=== PATIENT | female | born 1955 | race Caucasian/White ===

== ENCOUNTER 2016-09-14 17:46 | Inpatient (IN) | payer MEDICARE, BC ==
[2016-09-14] VITALS (11 sets, daily range): BP systolic 67–109; BP diastolic 47–64; BMI 23.0
[~2016-09-14] VITALS: Ht 162.6 cm; Wt 60.7 kg
[~2016-09-14 17:46] MED LIST: AMBIEN10 MG PO; BAYER CHEWABLE81 MG PO; DOXYCYCLINE HY100 M2 PO; DURAGESIC1 PATCH .7 TD; GLUCOPHAGE500 MG PO; K-DUR20 MEQ PO; LASIX20 MG PO; LISINOPRIL10 MG PO; MIRALAX17 GM PO; NEURONTIN 300300 MG PO; NICODERM C1 PATCH .3 TD; NORCO 10/325 TA1 TA1 PO; OMNICEF300 MG PO; TRIPLE ANTIB28.35 GM TP
[2016-09-14 19:00] LABS: BASOPHILS 0 % (0.0-2.0); EOSINOPHILS 0 % (0-7); IMMATURE GRANULOCYTES 0.3 % (0-5); LYMPHOCYTES 12.6 % (15-50); MCHC 32.2 g/dL (31.0-37.0); MCV 99.3 fL (80.0-100.0); MEAN PLATELET VOLUME 11.5 fL (7.4-10.4); MONOCYTES 2.7 % (2-11); NEUTROPHILS 84.4 % (40-80); PLATELET COUNT 62 10x3/uL (130-400); RDW 18.2 % (11.5-14.5); WBC 3.7 10x3/uL (4.8-10.8)
[2016-09-14 19:09] LABS: HEMATOCRIT 14.6 % (36.0-48.0); HEMOGLOBIN 4.7 g/dL (12-16); RBC 1.47 10x6/uL (4.00-5.40)
[2016-09-14 19:10] LABS: APTT 40.8 SECONDS (22.8-39.4); INR 2.21 (0.85-1.17); PROTIME 24.6 SECONDS (11.6-15.0)
[2016-09-14 19:14] LABS: ALBUMIN 2.1 g/dL (3.4-5.0); ANION GAP 20.5 mmol/L (8-16); BILIRUBIN - TOTAL 0.98 mg/dL (0.2-1.3); CALCIUM 8.5 mg/dL (8.5-10.1); CARBON DIOXIDE 19.7 mmol/L (21.0-32.0); CREATININE - SERUM 1.4 mg/dL (0.6-1.3); POTASSIUM - SERUM 5.2 mmol/L (3.5-5.1)
[2016-09-14 20:23] LABS: PLATELET ESTIMATE DECREASED
--- NOTE | 2016-09-14 21:00 | NUR ---
2100: Pt rec'd from ED via STR and placed HOB 30 degrees in room 2302 without difficulty. All monitors established and alarm set. Pt has Sandostation gtt and Protonix gtt infusing from ED. Pt is on 022LNC.
--- NOTE | 2016-09-14 21:15 | NUR ---
2114: Pt wearing adult briefs. Removed briefs. Small semi solid stool that is dark in color cleaned. Pt states she has had "red" stools for "a couple days." Pt continues that bloody stools increased in volume today though. Pt denies nausea or vomitting at this time.
--- NOTE | 2016-09-14 21:30 | NUR ---
2129: Dr. Venegas called and new orders rec'd. Started 22G PIV in Right FA at this time x1 attempt. NS bolus started to left arm 18G AC PIV, 3 way adapter connected to left FA PIV with Sandostaton and Protonix gtts. BT with NS connected to Right FA IV and PRBC, FFP, and PLT ordered.
--- NOTE | 2016-09-14 23:00 | NUR ---
2300: Pt tolerating blood product administration. Pt on 022LNC with [id number] with SPO2 97%. Lungs clear bilateral with auscultation. Pt does c/o pain 10/10 and states she has chronic "bilateral leg pain and cramping." Pt is wearing Fentanyl patch to left upper chest. Pt repositioned for comfort and provide ice chips as per request.
[2016-09-15] VITALS (39 sets, daily range): BP systolic 80–137; BP diastolic 50–101; Ht 162.6 cm; Wt 60.7 kg
[2016-09-15] MEDS ORDERED: GLUCOPHAGE500 MG (00:15)
[2016-09-15] MEDS ORDERED: ATIVAN2 MG PO (00:39)
[2016-09-15] MEDS ORDERED: RIBAVIRIN200 MG PO (00:40)
[2016-09-15] MEDS ORDERED: ZEPATIER PO (00:41)
[2016-09-15] MEDS ORDERED: ZOFRAN4 MG PO (00:43)
--- NOTE | 2016-09-15 03:30 | NUR ---
0330: Pt with small dark liquid BM. Linen saturated with urine. Linen changed and pt repositioned for comfort.
--- NOTE | 2016-09-15 04:30 | NUR ---
0430: Pt with hacking non productive cough. Lab called for AM Lab, Fio2 increased to 4L per NC, pt repositioned HOB 40 degrees. Pt lungs with audible exp wheezes bilaterally.
[2016-09-15 04:51] LABS: BASOPHILS 0.3 % (0.0-2.0); EOSINOPHILS 0.6 % (0-7); HEMATOCRIT 26.3 % (36.0-48.0); HEMOGLOBIN 8.8 g/dL (12-16); LYMPHOCYTES 17.4 % (15-50); MCHC 33.5 g/dL (31.0-37.0); MCV 86.8 fL (80.0-100.0); MEAN PLATELET VOLUME 10.9 fL (7.4-10.4); MONOCYTES 5.9 % (2-11); NEUTROPHILS 75.8 % (40-80); PLATELET COUNT 63 10x3/uL (130-400); RBC 3.03 10x6/uL (4.00-5.40); RDW 17.6 % (11.5-14.5); WBC 3.6 10x3/uL (4.8-10.8)
--- NOTE | 2016-09-15 05:00 | NUR ---
0500: Pt continues with exp wheezing. Notified . New orders rec'd, Pt given Lasix 20 mg IVP x1 at this time.
[2016-09-15 05:16] LABS: APTT 25.1 SECONDS (22.8-39.4); INR 1.29 (0.85-1.17)
[2016-09-15 05:23] LABS: BILIRUBIN - TOTAL 1.59 mg/dL (0.2-1.3); CALCIUM 8.8 mg/dL (8.5-10.1); CARBON DIOXIDE 23.2 mmol/L (21.0-32.0); CREATININE - SERUM 1.1 mg/dL (0.6-1.3)
[2016-09-15 05:24] LABS: ALBUMIN 3.2 g/dL (3.4-5.0); ANION GAP 15.1 mmol/L (8-16); POTASSIUM - SERUM 4.3 mmol/L (3.5-5.1)
[2016-09-15 10:08] LABS: BASOPHILS 0 % (0.0-2.0); EOSINOPHILS 0.2 % (0-7); HEMATOCRIT 29.1 % (36.0-48.0); HEMOGLOBIN 9.9 g/dL (12-16); IMMATURE GRANULOCYTES 0.2 % (0-5); LYMPHOCYTES 11.3 % (15-50); MCH 29.9 pg (26.0-34.0); MCV 87.9 fL (80.0-100.0); MEAN PLATELET VOLUME 11.1 fL (7.4-10.4); MONOCYTES 3.5 % (2-11); NEUTROPHILS 84.8 % (40-80); PLATELET COUNT 67 10x3/uL (130-400); RBC 3.31 10x6/uL (4.00-5.40); RDW 18.7 % (11.5-14.5); WBC 4.3 10x3/uL (4.8-10.8)
[2016-09-15] MEDS ORDERED: ULTRAM50 MG PO (10:16)
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
--- NOTE | 2016-09-15 11:00 | NUR ---
NO CHANGE NOTED
--- NOTE | 2016-09-15 13:00 | NUR ---
UP TO CHAIR WITH SOME ASSISTANCE, STANDS WELL, GOOD BALANCE, NEEDED HELP WITH TUBES AND LINES ONLY
--- NOTE | 2016-09-15 15:00 | NUR ---
NO CHANGE NOTED.
[2016-09-15 18:03] LABS: HEMATOCRIT 29.8 % (36.0-48.0)
--- NOTE | 2016-09-15 19:00 | NUR ---
REPORT RECIEVED, INITIAL ASSESSMENT COMPLETE, PLEASE SEE FLOW SHEETS FOR DETAILS. PT UP ON BEDSIDE CAMODE. DENIES ANY NEEDS/PAIN ATT. VSS, BED LOW AND LOCKED, CALL LIGHT IN REACH, NON SKID SOCKS ON. WILL CONTINUE POC.
--- NOTE | 2016-09-15 21:00 | NUR ---
DENIES PAIN/NEEDS ATT, UP IN CHAIR, CALL LIGHT IN REACH, CHAIR LOCKED, NON SKID SOCKS ON. VSS, WILL CONTINUE POC.
--- NOTE | 2016-09-15 23:00 | NUR ---
REASSESSMENT COMPLETE, PLEASE SEE FLOW SHEETS FOR DETAILS. PT RESTING IN CHAIR. DENIES PAIN/NEEDS ATT. CHAIR LOCKED, NON SKID SOCKS ON AND CALL LIGHT IN REACH. VSS, WILL CONTINUE POC.
[2016-09-16] VITALS (25 sets, daily range): BP systolic 109–135; BP diastolic 50–93
--- NOTE | 2016-09-16 01:00 | NUR ---
RESTING, NO S&S OF ACUTE DISTRESS NOTED. IN CHAIR, CHAIR LOCKED, NON SKID SOCKS ON, CALL LIGHT IN REACH. VSS, WILL CONTINUE POC.
--- NOTE | 2016-09-16 02:57 | NUR ---
REASSESSMENT COMPLETE, PLEASE SEE FLOW SHEETS FOR DETAILS. UP IN CHAIR, CHAIR LOCKED, NON SKID SOCKS ON, CALL LIGHT IN REACH. VSS, WILL CONTINUE POC.
[2016-09-16 04:51] LABS: HEMATOCRIT 29.2 % (36.0-48.0); HEMOGLOBIN 9.6 g/dL (12-16)
--- NOTE | 2016-09-16 05:00 | NUR ---
BACK TO BED, BED LOW AND LOCKED, CALL LIGHT IN REACH, VSS, WILL CONTINUE POC.
[2016-09-16 05:01] LABS: INR 1.43 (0.85-1.17); PROTIME 17.3 SECONDS (11.6-15.0)
[2016-09-16 05:17] LABS: ALBUMIN 3.3 g/dL (3.4-5.0); ANION GAP 12.1 mmol/L (8-16); CALCIUM 8.5 mg/dL (8.5-10.1); CARBON DIOXIDE 24.6 mmol/L (21.0-32.0); CREATININE - SERUM 0.9 mg/dL (0.6-1.3); POTASSIUM - SERUM 3.7 mmol/L (3.5-5.1); PROTEIN - SERUM 6.8 g/dL (6.4-8.2)
--- NOTE | 2016-09-16 07:00 | NUR ---
RECIEVED REPORT ON PT AT THIS TIME. NO ACUTE DISTRESS NOTED. PT TRANSFERRED FROM ICU TO CVICU AT THIS TIME VIA WHEELCHAIR ACCOMPANIED BY NURSING STAFF. PT ALERT AND ORIENTED. WILL CONTINUE PLAN OF CARE.
--- NOTE | 2016-09-16 09:40 | NUR ---
CONTINENT VOID NOTED VIA BEDPAN. PT DENIES ANY NEEDS. VSS. WILL CONTINUE PLAN OF CARE.
[2016-09-16 11:06] LABS: HEMATOCRIT 27.8 % (36.0-48.0); HEMOGLOBIN 9.3 g/dL (12-16)
--- NOTE | 2016-09-16 11:44 | NUR ---
LYING IN BED WATCHING TV AT THIS TIME. NO ACUTE DISTRESS NOTED. WILL CONTINUE PLAN FO CARE.
--- NOTE | 2016-09-16 15:59 | NUR ---
UP IN BED AT THIS TIME VISITING WITH FAMILY. NO ACUTE DISTRESS NOTED. BEDPAN USED, CONTINENT VOID APPROX 450 ML. WILL CONTINUE PLAN OF CARE.
--- NOTE | 2016-09-16 18:07 | NUR ---
UP IN CHAIR BESIDE BED AT THIS TIME. DENIES ANY NEEDS. NO ACUTE DISTRESS NOTED. WILL CONTINUE PLAN OF CARE.
[2016-09-16 18:23] LABS: HEMATOCRIT 27.6 % (36.0-48.0)
--- NOTE | 2016-09-16 19:00 | NUR ---
REPORT RECEIVED AND ASSESSMENT COMPLETED. SEE FLOWSHEET FOR FULL DETAILS.
--- NOTE | 2016-09-16 21:00 | NUR ---
GAVE PT BLANKET PER HER REQUEST. REPOSITIONED FOR COMFORT. VSS WILL MONITOR.
--- NOTE | 2016-09-16 23:00 | NUR ---
REASSESSMENT COMPLETED. SEE FLOWSHEET. PT HAD ONE INCONTINENT URINATION. COMPLETE LINEN CHANGE PROVIDED. PT STATES THAT SHE HAS PAIN BETWEEN SHOULDERS. PRN PAIN MED NOT AVAILABLE FOR ADMINISTRATION YET. TREATED PAIN WITH HEAT AND REPOSITIONING. WILL CONTINUE TO MONITOR.
[2016-09-17] VITALS (24 sets, daily range): BP systolic 35–137; BP diastolic 57–89
--- NOTE | 2016-09-17 01:00 | NUR ---
PT STATES HER BACK HURTS. REPOSITIONED FOR COMFORT. HAVE PROVIDED HEAT AND MEDICATION WHEN ABLE. VSS. WILL MONITOR FOR CHANGES.
--- NOTE | 2016-09-17 03:00 | NUR ---
REASSESSMENT COMPLETED. SEE FLOWSHEET FOR FULL DETAILS. PT B/P 95 SYSTOLIC. WILL HOLD PRN PAIN MED UNTIL THIS RISES. PT DID STATE THAT SHE IS NOT LONGER IN PAIN AT THIS TIME. WILL MONITOR FOR CHANGES AND ADMINISTER WHEN APPLICABLE.
[2016-09-17 04:51] LABS: BASOPHILS 0 % (0.0-2.0); EOSINOPHILS 1.3 % (0-7); HEMATOCRIT 28.4 % (36.0-48.0); HEMOGLOBIN 9.1 g/dL (12-16); LYMPHOCYTES 11.8 % (15-50); MCH 29.3 pg (26.0-34.0); MEAN PLATELET VOLUME 11.2 fL (7.4-10.4); MONOCYTES 5.1 % (2-11); NEUTROPHILS 81.8 % (40-80); PLATELET COUNT 63 10x3/uL (130-400); RBC 3.11 10x6/uL (4.00-5.40)
[2016-09-17 05:01] LABS: INR 1.53 (0.85-1.17); PROTIME 18.3 SECONDS (11.6-15.0)
[2016-09-17 05:11] LABS: MCV 91.3 fL (80.0-100.0)
[2016-09-17 05:16] LABS: ALBUMIN 3.1 g/dL (3.4-5.0); ALKALINE PHOSPHATASE 69 U/L (46-116); ALT (SGPT) 131 U/L (10-68); CALCIUM 8.5 mg/dL (8.5-10.1); CARBON DIOXIDE 26.3 mmol/L (21.0-32.0); CHLORIDE - SERUM 107 mmol/L (98-107); CREATININE - SERUM 0.8 mg/dL (0.6-1.3); GLUCOSE 180 mg/dL (74-106); POTASSIUM - SERUM 3.7 mmol/L (3.5-5.1); PROTEIN - SERUM 6.8 g/dL (6.4-8.2); SODIUM 141 mmol/L (136-145); eGFR NON AFRICAN AMERICAN 77 mL/min (90-120)
[2016-09-17 05:26] LABS: CALC OSMOLALITY 292 mosm/kg (275-300); UREA NITROGEN 31 mg/dL (7-18)
--- NOTE | 2016-09-17 05:41 | NUR ---
ASSISTED PT TO BATHROOM. NO OTHER CHANGES AT THIS TIME. VSS. WILL MONITOR.
--- NOTE | 2016-09-17 10:46 | NUR ---
NUTRITION MONITORING & EVAL PT CONTINUES CLEAR LIQUID DIET. NURSING REPORTS MODEST INTAKE. WILL MONITOR DIET ADVANCEMENT, PO INTAKE. RD FOLLOWING
[2016-09-17 13:11] LABS: HEMATOCRIT 26.5 % (36.0-48.0); HEMOGLOBIN 8.6 g/dL (12-16)
--- NOTE | 2016-09-17 19:00 | NUR ---
REPORT RECEIVED AND ASSESSMENT COMPLETED. SEE FLOWSHEET FOR FULL DETAILS.
--- NOTE | 2016-09-17 19:05 | NUR ---
PT ADMITTED TO CVICU, ALL MONITORING EQUIPMENT ATTACHED. ALARMS ON. PT YELLING, ATTEMPTING TO REORIENT. PAIN MEDS GIVEN. PT UNABLE TO REDIRECT TO STAY IN BED. BUE WRIST RESTRAINTS APPLIED ORDERED.
[2016-09-17 20:19] LABS: HEMATOCRIT 28.5 % (36.0-48.0)
--- NOTE | 2016-09-17 21:00 | NUR ---
PT SEEN BY DR HAYES. NEW ORDERS RECEIVED.
--- NOTE | 2016-09-17 23:00 | NUR ---
reassessment completed see flowsheet for full details
[2016-09-18] VITALS (15 sets, daily range): BP systolic 98–133; BP diastolic 56–82
--- NOTE | 2016-09-18 01:34 | NUR ---
no changes in status at this time
--- NOTE | 2016-09-18 03:00 | NUR ---
REASSESSMENT COMPLETED. SEE FLOWSHEET.
--- NOTE | 2016-09-18 05:00 | NUR ---
NO CHANGES IN STATUS AT THIS TIME. VSS. WILL MONITOR
[2016-09-18 05:38] LABS: HEMATOCRIT 28.7 % (36.0-48.0); HEMOGLOBIN 9.3 g/dL (12-16)
[2016-09-18 05:42] LABS: ANION GAP 12.3 mmol/L (8-16); CALCIUM 7.9 mg/dL (8.5-10.1); CARBON DIOXIDE 26.6 mmol/L (21.0-32.0); CREATININE - SERUM 0.9 mg/dL (0.6-1.3); POTASSIUM - SERUM 3.9 mmol/L (3.5-5.1)
--- NOTE | 2016-09-18 10:06 | NUR ---
ASSISTED PT TO BATHROOM, STEADY GAIT NOTED. REC'D TRANSFER ORDERS AND UD ORDERS FROM DR ALVARADO.
[2016-09-18 10:30] LABS: HEMATOCRIT 28.7 % (36.0-48.0); HEMOGLOBIN 9.3 g/dL (12-16); LYMPHOCYTES 10.1 % (15-50); MCH 30.2 pg (26.0-34.0); MCHC 32.4 g/dL (31.0-37.0); MCV 93.2 fL (80.0-100.0); MEAN PLATELET VOLUME 11.7 fL (7.4-10.4); NEUTROPHILS 83.3 % (40-80); PLATELET COUNT 57 10x3/uL (130-400); RBC 3.08 10x6/uL (4.00-5.40); RDW 19.8 % (11.5-14.5); WBC 3.6 10x3/uL (4.8-10.8)
[2016-09-18 18:59] LABS: HEMATOCRIT 29.9 % (36.0-48.0); HEMOGLOBIN 9.5 g/dL (12-16)
--- NOTE | 2016-09-18 19:00 | NUR ---
REPORT RECEIVED AND ASSESSMENT COMPLETED. SEE FLOWSHEET FOR FULL DETAILS. DR HAYES AT BEDSIDE. PT IS NOW A XFER. VSS WILL MONITOR FOR CHANGES
--- NOTE | 2016-09-18 21:00 | NUR ---
PT ASSISTED OOB AND INTO BATHROOM, PT INSTRUCTED TO CALL FOR ASSITANCE BEFORE RETURNING TO BED, PT VERBALIZES UNDERSTANDING
--- NOTE | 2016-09-18 21:20 | NUR ---
PT ASSISTED TO MANUELA GARDINER
--- NOTE | 2016-09-18 21:55 | NUR ---
PT ASSISTED BACK TO BED AND EVENING MED OF AMBIEN PROVIDED, PT COMPLAINS OF BEING COLD, EXTRA BLANKETS PROVIDED, PT DENIES FURTHER NEEDS, CALL LIGHT IN REACH, WILL MONITOR FOR CHANGES.
--- NOTE | 2016-09-18 22:00 | NUR ---
REPORT REC'D AND CARE ASSUMED, REC' D PT SITTING UP IN CHAIR AT BS WATCHING TV, AWAKE, ALERT, ORIENTED X 3, RIGHT FOREARM PIV WITH ZOFRAN @ 4.7CC/HR, AND LEFT FOREARM PIV WITH PROTONIX @ 10CC/HR, CM-SR, PT MAEE, DENIES PAIN OR OTHER NEEDS, CALL LIGHT IN REACH.
[2016-09-19] VITALS (11 sets, daily range): BP systolic 100–131; BP diastolic 43–89
--- NOTE | 2016-09-19 00:30 | NUR ---
PT RESTING IN BED EYES CLOSED, VSS, WILL CONT TO MONITOR FOR CHANGES.
--- NOTE | 2016-09-19 03:00 | NUR ---
PT AWAKE REQUESTING TO GO TO THE BATHROOM, PT ASSISTED UP TO BATHROOM, INSTRUCTED TO CALL FOR NURSE BEFORE RETURNING TO BED.
--- NOTE | 2016-09-19 03:20 | NUR ---
BATH AND COMPLETE LINEN CHANGE PROVIDED WHILE PT UP IN BATHROOM, HAIR COMBED, PT WISHES TO SIT UP FOR AWHILE, ASSISTED PT TO CHAIR, WARM BLANKET PROVIDED FOR COMFORT, CALL LIGHT IN REACH
[2016-09-19 04:16] LABS: HEMATOCRIT 29.8 % (36.0-48.0); HEMOGLOBIN 9.5 g/dL (12-16)
[2016-09-19 04:23] LABS: CALC OSMOLALITY 284 mosm/kg (275-300); CALCIUM 8.2 mg/dL (8.5-10.1); CARBON DIOXIDE 27.2 mmol/L (21.0-32.0); CHLORIDE - SERUM 103 mmol/L (98-107); CREATININE - SERUM 0.8 mg/dL (0.6-1.3); GLUCOSE 189 mg/dL (74-106); POTASSIUM - SERUM 3.4 mmol/L (3.5-5.1); SODIUM 139 mmol/L (136-145); UREA NITROGEN 18 mg/dL (7-18); eGFR NON AFRICAN AMERICAN 77 mL/min (90-120)
--- NOTE | 2016-09-19 05:05 | NUR ---
PT REMAINS UP IN CHAIR WATCHING TV, DENIES PAIN OR OTHER NEEDS, WILL REMAIN IN CHAIR AT THIS TIME.
--- NOTE | 2016-09-19 07:52 | NUR ---
PT UP SITTING IN CHAIR. ALERT AND ORIENTED. 02 2LNC, SPO2 97%, RT LUNG DEMINISHED,AFEBRILE,VSS. BREAKFAST TRAY SERVED. /
--- NOTE | 2016-09-19 08:50 | NUR ---
ASSISTED PT TO BATHROOM. REPORT CALLED TO [facility] 2 NURSING STAFF. WILL TRANSPORT BU W/C.
--- NOTE | 2016-09-19 09:30 | NUR ---
LIAN MARQUEZ RECEIVED REPORT FROM LIAN JARRETT IN CVICU. 09- RECEIVED PT FROM LIAN JARRETT VIA WHEELCHAIR. PT IS ALERT AND ORIENTED. UP WITH PARTIAL ASSIST. ON O2 AT 2L VIA NC. IV SEEN TO LEFT AC (AREA IS RED, TENDER TO TOUCH) WITH PROTONIX DRIP RUNNING AT 10CC/HR. SECOND IV SEEN TO RIGHT FOREARM WITH ZOFRAN DRIP RUNNING AT 4.7CC/HR. SAT IS 97% (ON 02 AT 2L VIA NC), HR IS 84. LUNG SOUNDS ARE CLEAR/EQUAL IN ALL FOUR LOBES (BUL, BLL). BOWEL SOUNDS ARE ACTIVE X 4. DISCOLORATION/BRUISING SEEN TO BLE WITH +2 PITTING EDEMA. BILATERAL RADIAL PULSES ARE WEAK, BILATERAL PEDAL PULSES ARE WEAK. PT STATES SHE HAS HAD NO N/V TODAY. WILL CHECK IV SITE AND RESITE NEEDED. WILL CONTINUE TO MONITOR AND CONTINUE WITH PLAN OF CARE.
--- NOTE | 2016-09-19 09:38 | NUR ---
QUICKSTART DONE PER POLICY.
--- NOTE | 2016-09-19 10:10 | NUR ---
PAGED DR. PARHAM TO INFORM HIM THAT PTS IV INFILTRATED AND PT REFUSED ANOTHER IV. PT HAS ZOFRAN DRIP RUNNING TO IV IN RIGHT FOREARM AND PT HAD PROTONIX RUNNING IN IV TO LEFT AC (THAT INFILTRATED). WILL AWAIT CALLBACK AND CONTINUE TO MONITOR.
--- NOTE | 2016-09-19 10:11 | NUR ---
1000- PT HAD C/O OF PAIN TO IV SITE TO LEFT AC AREA THAT HAD REDNESS SEEN AND WAS TENDER TO TOUCH. SHAYAN RN STUDENT REMOVED IV WITH CATH TIP INTACT, TOLERATED WELL. PT REFUSED ANOTHER IV. WILL CALL DR. PARHAM AND INFORM HIM OF THIS. WILL CONTINUE TO MONITOR.
--- NOTE | 2016-09-19 10:14 | NUR ---
RECEIVED CALLBACK FROM DR. PARHAM WITH NEW ORDERS RECEIVED.
[2016-09-19 10:52] LABS: HEMATOCRIT 27.6 % (36.0-48.0); HEMOGLOBIN 8.9 g/dL (12-16)
--- NOTE | 2016-09-19 15:53 | NUR ---
RECEIVED CALL FROM DR. ALVARADO. I INFORMED DR. ALVARADO OF PTS HCT LEVEL AND HGB LEVEL THIS MORNING. DR. ALVARADO STATES TO NOT DO BLOOD TRANSFUSION UNTIL WE SEE WHAT LABS ARE TOMORROW MORNING AND ALSO IF PT WILL BE D/C OR NOT TOMORROW. WILL DO ORDERED AND CONTINUE TO MONITOR.
[2016-09-19 18:41] LABS: HEMATOCRIT 29.5 % (36.0-48.0); HEMOGLOBIN 9.7 g/dL (12-16)
--- NOTE | 2016-09-19 20:44 | NUR ---
PT AWAKE, ALERT, ORIENTED, ASKING FOR ASSIST TO BATHROOM. PT DENIES ANY NEEDS AT THIS TIME. CONTINUE TO MONITOR CLOSELY. BED LOW, CALL LIGHT IN REACH, SIDE RAILS X 2, HOB 20 DEGREES.
[2016-09-20] VITALS: BP 127/86
[2016-09-20 04:00] VITALS: BP 178/73
[2016-09-20 04:10] LABS: HEMATOCRIT 31.9 % (36.0-48.0); HEMOGLOBIN 10.2 g/dL (12-16)
[2016-09-20 04:28] LABS: ANION GAP 12.3 mmol/L (8-16); CALCIUM 7.9 mg/dL (8.5-10.1); CREATININE - SERUM 0.9 mg/dL (0.6-1.3); POTASSIUM - SERUM 3.3 mmol/L (3.5-5.1)
[2016-09-20 07:25] VITALS: BP 111/72
--- NOTE | 2016-09-20 07:58 | NUR ---
AM ROUNDS - PT AWAKE IN THE BED. HAS NO COMPLAINTS AT THIS TIME. 2L O2 VIA NC, PROTONIX DRIP 10CC/HR. CALL ESCAMILLA IN USE. WILL CONTINUE TO MONITOR.
[2016-09-20] MEDS ORDERED: NEURONTIN 300300 MG PO (09:37)
[2016-09-20] MEDS ORDERED: ATIVAN2 MG PO (09:38)
[2016-09-20] MEDS ORDERED: AMBIEN10 MG PO (09:38)
[2016-09-20] MEDS ORDERED: ULTRAM50 MG PO (09:39)
[2016-09-20] MEDS ORDERED: DURAGESIC1 PATCH .7 TD (09:39)
[2016-09-20 09:53] LABS: HEMATOCRIT 29.9 % (36.0-48.0); HEMOGLOBIN 9.7 g/dL (12-16)
--- NOTE | 2016-09-20 11:19 | NUR ---
Patient Name: JEF QUAN Encounter No: [id number] : 1955 Primary Insurance: MEDICARE A & B Anticipated DC Date: 09-20-2016 Planned Disposition: Home WITH HOME HEALTH External Planned Provider: [facility] DCP follow-up note: CM RECEIVED DISCHARGE ORDER, MET WITH PT IN ROOM TO DISCUSS DISCHARGE PLANNING AND NEEDS, DISCUSSED AVAILABILITY OF REHAB SERVICES, HOME HEALTH AND MEDICAL EQUIPMENT. PT WOULD LIKE HOME HEALTH FOR POST HOSPITALIZATION FOLLOW UP WITH MEDICATION MANAGEMENT AND TO SEE WHAT OTHER SERVICES, IF ANY, SHE MIGHT NEED AT HOME. CM EXPLAINED THAT CM WILL CONTACT THE DOCTOR AND ASK FOR ORDER AND CAN ARRANGE IF THE DOCTOR AGREES AND PROVIDES ORDER. CM CALLED DR. ALVARADO'S OFFICE, LEFT MESSAGE WITH PT'S REQUEST WITH CM CALL BACK NUMBER. MARKET DEVELOPMENT ANALYST NOTIFIED. PT NOTIFIED. PT DENIES FURHTER DISCHARGE NEEDS, REPORTS HER SPOUSE WILL PICK HER UP FOR DISCHARGE HOME TODAY. IMPORTANT MESSAGE FROM MEDICARE PROVIDED. PT SIGNED CHOICE FOR [facility]. CM WILL ARRANGE HOME HEALTH WITH [facility] IF DR. ALVARADO AGREES WITH NEED AND PROVIDED HOME HEALTH ORDERS. Ramy Mccallum, CASE MANAGEMENT
[2016-09-20 12:54] VITALS: BP 121/82
--- NOTE | 2016-09-20 15:13 | NUR ---
PT DISCHARGED - DISCHARGE INSTRUCTIONS GIVEN TO PT AND . PT BEING DISCHARGED HOME. IV REMOVED WITH CATH TIP INTACT. PT LEFT FLOOR VIA WHEELCHAIR VIA VOLUNTEER.
== END 2016-09-20 15:21 | disposition home health service (06) | DRG 368 ==
LOC: D.ER 17:46 → D.CVICU 18:48 → D.ICU 18:48 → D.CVICU 09-16 07:49 → D.M2 09-19 09:28
PROVIDERS: Emergency Medicine; Internal Medicine Gastroenterology; Internal Medicine Hematology; ADMIT Legal Medicine
PROC: 06L34CZ Occlusion of Esophageal Vein with Extraluminal Device, Percutaneous Endoscopic Approach (ICD-10-PCS; 2016-09-15)
PROC: 0DB68ZX Excision of Stomach, Via Natural or Artificial Opening Endoscopic, Diagnostic (ICD-10-PCS; principal; 2016-09-15 09:30)
DX: I85.01 Esophageal varices with bleeding (principal); R57.1 Hypovolemic shock; D62 Acute posthemorrhagic anemia; K76.6 Portal hypertension; E11.40 Type 2 diabetes mellitus with diabetic neuropathy, unspecified; I25.10 Atherosclerotic heart disease of native coronary artery without angina pectoris; Z95.1 Presence of aortocoronary bypass graft; B19.20 Unspecified viral hepatitis C without hepatic coma

== ENCOUNTER 2016-09-26 19:19 | Inpatient (IN) | payer MEDICARE, BC ==
[~2016-09-26] VITALS: Ht 162.6 cm; Wt 96.7 kg
--- NOTE | ~2016-09-26 | HEMODYNAMI ---
PATIENT:JEF QUAN MEDICAL RECORD: [id number] : 55 [facility] ADMISS[facility] DATE: 09/26/16 Generatedon:09/27/201615:25 Patient name: JEF QUAN Patient #: [id number] SSN: : 1955 Date of study: 09/27/2016 Page: Of Hemodynamic Procedure Report Patient Data Patient Demographics Procedure consent was obtained First Name: JEF Gender: Female Last Name: KADEEM : 1955 Middle Initial: L Age: 60 year(s) Patient #: [id number] Race: Unknown Additional ID: [id number] Contact details Address: [address] [place] [address] State: [place] City: [place] Zip code: [address] Admission Admission Data Admission Date: 09/26/2016 Admission Time: 21:37 Room #: [facility] Procedure Procedure Types Cath Procedure Peripheral Cath Diagnostic Procedure Miscellaneous Procedure Description Procedure Date Procedure Date: 09/27/2016 Procedure Start Time: 13:44 Procedure Staff Name Function Jesus Baker MD Performing Physician Liliana Martinez RT Scrub Laura Bardales RN Nurse Henry Chew RT Monitor Procedure Data Cath Procedure Fluoroscopy Diagnostic fluoroscopy Total fluoroscopy Time: time: 21.1 min 21.1 min Diagnostic fluoroscopy Total fluoroscopy dose: 833 dose: 833 mGy mGy Contrast Material Contrast Material Type Amount (ml) Isovue 300 59 Diagnostic catheters Device Type Used For End Catheter Placement Merit UHF Pigtail VESSEL SIZING 5Fr 65CM catheter Diagnostic Infinity 5Fr MPA-2 catheter Hemodynamics Rest Heart Rate: 100 (bpm) Pressure Samples Time Site Value (mmHg) Purpose Heart Use Rate(bpm) 14:05 Hepatic 13/11(12) Snapshot 65 14:06 RA 12(11) Snapshot 70 14:12 Hepatic 23/20(20) Snapshot 75 14:46 Portal 33/32(31) Snapshot 77 15:07 Portal (22) Snapshot 88 15:08 RA 22/22(18) Snapshot 86 Snapshots Pre Cath Intra NCS Post Cath Procedure Log Time Note 12:54:08 Henry Chew RT (R) (CV) sent for patient. Start room use. 12:54:14 Time tracking: Regular hours 12:54:19 Plan of Care:Hemodynamics will remain stable., Cardiac rhythm will remain stable., Comfort level will be maintained., Respiratory function will remain adequate., Patient/ family verbilizes understanding of procedure., Procedure tolerated without complication., Recovers from procedure without complications.. 12:54:26 Patient received from CVICU to IR Alert and oriented. Tansferred to table in Supine position. 12:54:30 Use device set IR Diagnostic 12:54:32 Sterile Angiographic Pack opened to sterile field. 12:54:32 Bag Decanter opened to sterile field. 12:54:33 Acist Manifold opened to sterile field. 12:54:34 Acist Syringe opened to sterile field. 12:54:34 Acist Hand Control opened to sterile field. 12:54:38 Correct patient and procedure confirmed by team. 12:54:40 Signed procedure consent form obtained from patient. 12:54:41 ECG and BP/O2 sat monitors applied to patient. 12:54:43 Full Disclosure recording started 12:54:48 H&P Date Dictated: 09/27/2016 Within 30 days and on chart.. 12:54:49 Pre-procedure instructions explained to patient. 12:54:49 Pre-op teaching completed and patient verbalized understanding. 12:54:51 Family in waiting room. 12:54:52 Patient NPO since Midnight. 12:54:56 - 12:55:20 SEE ANESTHESIA NOTE FOR PRE PROCEDURE GENERAL ANESTHESIA 13:13:23 Right abdomen area was prepped with chlora-prep and draped in sterile fashion 13:13:41 Right neck area was prepped with chlora-prep and draped in sterile fashion 13:13:44 Alarms reviewed by RTruman Thomas 13:13:45 Alarms reviewed by R. N. 13:26:46 Baseline sample Acquired. 13:43:12 Physician arrived 13:43:13 --------ALL STOP TIME OUT------ 13:43:14 Final Timeout: patient, procedure, and site verified with staff and physician. All members of the team are in agreement. 13:43:19 Right neck site verified by team. 13:43:26 Right abdomen site verified by team. 13:43:30 Physical assessment completed. ASA score P 3 - A patient with severe systemic disease as per Jesus Baker MD. 13:43:34 Sedation plan: IV Moderate Sedation General Anesthesia 13:44:03 Procedure started. 13:44:11 Local anesthetic to Abdominal area with Lidocaine 1% by Jesus Baker MD.INITIAL ACCESS ONLY 13:44:45 FLOR-B-XLEDSDCG 8FR CATH DRAIN TRAY opened to sterile field. 13:48:00 Local anesthetic to Abdominal area with Lidocaine 1% by Jesus Baker MD.ADDITIONAL ACCESS 13:48:02 TUBING, CONTRAST INJCTN HI PRES opened to sterile field. 13:48:02 TUBING, CONTRAST INJCTN HI PRES opened to sterile field. 13:48:03 Cook BENTSON 145cm guide wire opened to sterile field. 13:48:03 Micropuncture VSI 4FR kit opened to sterile field. 13:48:04 KIT, TRANSJUGULAR LIVER ACCESS R opened to sterile field. 13:48:04 [place] 260 guide wire opened to sterile field. 13:48:04 Terumo ANGLE 260cm glide wire opened to sterile field. 13:48:18 A Merit UHF Pigtail VESSEL SIZING 5Fr 65CM catheter was advanced over the wire and used for . 13:48:22 A Diagnostic Infinity 5Fr MPA-2 catheter was advanced over the wire and used for . 14:05:19 Zero performed for pressure channel P1 14:07:44 Terumo 5FR ANGLED 65CM glide catheter opened to sterile field. 14:10:05 STOPCOCK 3-WAY LARGE BORE opened to sterile field. 14:38:28 TUBING, CONTRAST INJCTN HI PRES opened to sterile field. 14:39:53 BasixTOUCH Inflation Syringe opened to sterile field. 14:53:40 VIATORR 12X6/2CM stent was deployed across Undefined1 . 14:54:22 Inflation number: 1 A Cordis Powerflex Pro 10.0 x 40 x 80cm balloon was prepped and advanced across the Undefined1, then inflated to 0 REY for 0:00 (min:sec). 14:57:46 Inflation number: 2 A Cordis Powerflex Pro 5.0 x 40 x 80cm balloon was prepped and advanced across the Undefined1, then inflated to 0 REY for 0:00 (min:sec). 15:10:10 Procedure ended.(Physican Out) 15:11:26 3.1 LITERS 15:16:02 Fluoroscopy time 21.10 minutes. 15:16:08 Fluoroscopy dose: 833 mGy 15:16:08 Flurop Dose total: 833 15:16:16 Contrast amount:Isovue 300 59ml. 15:16:17 Sharps counted by scrub and verified by R.N. 15:16:18 Insertion/operative site no bleeding no hematoma. 15:16:25 Post-op/insertion site Right Abdominal area dressed using a 4 x 4 and Tegaderm. 15:16:30 Post-op/insertion site Right Jugular vein dressed using a 4 x 4 and Tegaderm. 15:16:38 Post right IJ vein:stable 15:16:39 Post Procedure Pulses reassessed and unchanged 15:16:45 Post-procedure physical assessment completed. ASA score P 3 - A patient with severe systemic disease as per Jesus Baker MD. 15:16:47 Post procedure rhythm: unchanged. 15:23:03 SEE ANESTHESIA NOTE FOR POST PROCEDURE GENERAL ANESTHESIA 15:23:22 Post procedure instruction explained to patient.Patient verbalizes understanding. 15:23:23 Procedure and supply charges have been captured, reviewed, submitted an d are correct. 15:23:25 Report given to Recovery Room. 15:23:28 Patient transfered to Recovery Room with Bed. Intervention Summary Intervention Notes Time ActionType Lesion and Equipment Action# Pressure Duration Attributes Used 14:53:40 Deploy self Undefined1 VIATORR 1 expanding 12X6/2CM stent stent 14:54:22 Inflate Undefined1 Cordis 1 0 00:00 balloon Powerflex Pro 10.0 x 40 x 80cm balloon 14:57:46 Inflate Undefined1 Cordis 2 0 00:00 balloon Powerflex Pro 5.0 x 40 x 80cm balloon Device Usage Item Name Manufacture Quantity Catalog Hospital Part Current Mini mal Lot# / Number Charge Number Stock Stock Serial# Code Sterile Cardinal 1 [id number] 097831 5 Angiographic Health Pack Bag Decanter Microtek 1 [id number] 275931 23141 386915 5 Medical Inc. Acist Manifold Acist 1 46084 473941 107651 132954 5 Medical Systems Inc Acist Syringe Acist 1 68605 462616 048293 803628 20 Medical Systems Inc Acist Hand Acist 1 76140 440127 053895 280860 5 Control Medical Systems Inc [id number] CareFusion 1 [id number] 381814 608792 5 8FR CATH DRAIN TRAY TUBING, Merit 3 [id number] 865674 956350 361716 5 CONTRAST INJCTN Medical HI PRES [place] BENTSON [facility] 1 [id number] 754302 949961 5 [id number] 145cm guide wire Micropuncture VSI VASCULAR 1 [id number] 593626 982566 5 VSI 4FR kit SOLUTIONS KIT, [facility] 1 [id number] 500110 559252 5 [id number] TRANSJUGULAR LIVER ACCESS R [place] 260 [facility] 1 [id number] 006549 670021 5 [id number] guide wire Terumo ANGLE Terumo 1 [id number] 250967 785785 920796 5 260cm glide wire Merit [facility] Merit 1 [id number] 376183 745402 5 Pigtail VESSEL Medical SIZING 5Fr 65CM catheter Diagnostic Cardinal 1 [id number] 778520 276081 445459 5 Infinity 5Fr Health MPA-2 catheter Terumo 5FR Terumo 1 [id number] 126931 948064 5 ANGLED 65CM glide catheter STOPCOCK 3-WAY [facility] 1 [id number] 884062 6382 312406 5 [id number] LARGE BORE BasixTOUCH Merit 1 [id number] 669931 634359 387756 5 Inflation Medical Syringe VIATORR [place] 1 [id number] 295096 832180 194778 5 [id number] 12X6/2CM stent Cordis Cardinal 1 [id number] 697612 530059 159972 5 Powerflex Pro Health 10.0 x 40 x 80cm balloon Cordis Cardinal 1 [id number] 466963 948908 226683 5 Powerflex Pro Health 5.0 x 40 x 80cm balloon Signature Audit [place] Stage Time Signature Unsigned Intra-Procedure 09/27/2016 Henry 3:25:28 PM Jeevan RT (R) (CV) Signatures Monitor : Henry Signature : Jeevan RT Date : Time : [address] [place] [address]
[~2016-09-26 19:19] MED LIST changes: +ATIVAN2 MG PO; +GLUCOPHAGE500 MG; +RIBAVIRIN200 MG PO; +ULTRAM50 MG PO; +ZEPATIER PO; +ZOFRAN4 MG PO
[2016-09-26 20:17] LABS: BASOPHILS 0.2 % (0-2); EOSINOPHILS 1.2 % (0-7); HEMATOCRIT 26.3 % (36.0-48.0); HEMOGLOBIN 8.3 g/dL (12-16); IMMATURE GRANULOCYTES 0.2 % (0-5); LYMPHOCYTES 11.7 % (15-50); MCH 30.3 pg (26.0-34.0); MCHC 31.6 g/dL (31.0-37.0); MEAN PLATELET VOLUME 10.5 fL (7.4-10.4); MONOCYTES 6.4 % (2-11); NEUTROPHILS 80.3 % (40-80); RBC 2.74 10x6/uL (4.00-5.40); RDW 20.7 % (11.5-14.5); WBC 5.7 10x3/uL (4.8-10.8)
[2016-09-26 20:22] LABS: APTT 34.1 SECONDS (22.8-39.4); INR 1.76 (0.85-1.17); PROTIME 20.5 SECONDS (11.6-15.0)
[2016-09-26 20:28] LABS: PLATELET COUNT 128 10x3/uL (130-400)
[2016-09-26 20:30] LABS: ALBUMIN 2.5 g/dL (3.4-5.0); ANION GAP 8.7 mmol/L (8-16); BILIRUBIN - TOTAL 2.19 mg/dL (0.2-1.3); CALCIUM 8.1 mg/dL (8.5-10.1); CARBON DIOXIDE 30.5 mmol/L (21.0-32.0); POTASSIUM - SERUM 4.2 mmol/L (3.5-5.1); PROTEIN - SERUM 5.9 g/dL (6.4-8.2)
[2016-09-27] VITALS (22 sets, daily range): BP systolic 79–126; BP diastolic 54–85; Ht 162.6 cm; Wt 96.7 kg
--- NOTE | 2016-09-27 00:10 | NUR ---
Received patient from ER to CV02. Connected to monitors, initial assessment completed. 1 unit FFP transfusing with 1 remaining, no s/s of reaction at this time. No further needs at this time, all VSS and will continue to monitor.
[2016-09-27 01:01] LABS: HEMATOCRIT 29.6 % (36.0-48.0); HEMOGLOBIN 9.8 g/dL (12-16)
--- NOTE | 2016-09-27 03:00 | NUR ---
Reassessment completed per flowsheet, patient resting in bed with eyes closed. Patient NSR on telemetry, rhythmic and regular. Breathing is shallow and unlabored on 2L via NC, O2 sat 95%. Small black/tarry stool noted, cleaned and repositioned. All pulses palpable with cap refill <3 sec, skin is cool and dry to touch. Patient c/o pain 2/10 in abdomen, repositioned for comfort. FFP infusing, will monitor for s/s of reaction. No further needs at this time, all VSS and will continue plan of care.
[2016-09-27 03:20] LABS: APPEARANCE CLEAR (CLEAR); BILIRUBIN NEGATIVE (NEGATIVE); COLOR DK YELLOW (YELLOW); GLUCOSE NEGATIVE (NEGATIVE); KETONE NEGATIVE (NEGATIVE); LEUKOCYTE ESTERASE NEGATIVE (NEGATIVE); NITRITE NEGATIVE (NEGATIVE); PROTEIN NEGATIVE (NEGATIVE); SPECIFIC GRAVITY 1.015 (1.005-1.020); UROBILINOGEN NORMAL (NORMAL)
[2016-09-27 04:18] LABS: APTT 33.4 SECONDS (22.8-39.4); INR 1.49 (0.85-1.17)
[2016-09-27 05:58] LABS: BASOPHILS 0 % (0-2); EOSINOPHILS 3.3 % (0-7); HEMATOCRIT 27.7 % (36.0-48.0); LYMPHOCYTES 18.6 % (15-50); MCH 30.4 pg (26.0-34.0); MCHC 32.5 g/dL (31.0-37.0); MEAN PLATELET VOLUME 11.4 fL (7.4-10.4); MONOCYTES 7.8 % (2-11); NEUTROPHILS 70.3 % (40-80); RBC 2.96 10x6/uL (4.00-5.40); RDW 19.1 % (11.5-14.5)
[2016-09-27 06:26] LABS: MCV 93.6 fL (80.0-100.0); PLATELET COUNT 67 10x3/uL (130-400); WBC 3.1 10x3/uL (4.8-10.8)
[2016-09-27 06:56] LABS: ALBUMIN 2.7 g/dL (3.4-5.0); ANION GAP 11.2 mmol/L (8-16); BILIRUBIN - TOTAL 1.71 mg/dL (0.2-1.3); CALCIUM 7.8 mg/dL (8.5-10.1); CARBON DIOXIDE 28.2 mmol/L (21.0-32.0); POTASSIUM - SERUM 4.4 mmol/L (3.5-5.1); PROTEIN - SERUM 5.9 g/dL (6.4-8.2)
--- NOTE | 2016-09-27 07:00 | NUR ---
PT REPORT REC'D, PT CARE ASSUMED. PT RESTING WITH EYES CLOSED, NO C/O PAIN, VSS, ROOM AIR. LEFT AC PIV S/L, DRESSING CDI. LEFT FOREARM PIV WITH FLUIDS INFUSING, SEE FLOW SHEET. HANKINS CATHETER FREE OF KINKS WITH CONCENTRATED YELLOW URINE RETURN. SHIFT ASSESSMENT COMPLETED, SEE FLOW SEHET. ROOM FREE OF CLUTTER, CALL LIGHT IN REACH, WILL CONTINUE TO MONITOR PT.
--- NOTE | 2016-09-27 07:50 | NUR ---
BEGAN INFUSING UNIT OF PRBC, VSS, SEE BLOOD FLOW SHEET.
--- NOTE | 2016-09-27 07:51 | NUR ---
DR. PARHAM INFORMED OF CONSULT, WANTS IR CONSULTED, WILL CONTACT DR. SIMS.
--- NOTE | 2016-09-27 08:02 | NUR ---
CONTACTED WENDY ERAZO RN, TO INFORM OF DR. SIMS'S CONSULT FOR PT. "WILL BE UP THERE IN A BIT."
--- NOTE | 2016-09-27 08:49 | NUR ---
ASKED PT FOR 'S PHONE NUMBER, PER DR. RAMOS'S REQUEST, HOME PHONE NUMBER AND CELL NUMBER. PTS WILL BE HERE AROUND NOON OR SO.
--- NOTE | 2016-09-27 10:15 | NUR ---
NOTIFIED DR. RAMOS AND DR. PARHAM OF AMMONIA LEVEL, ORDERS RECIEVED.
--- NOTE | 2016-09-27 11:00 | NUR ---
PT CONFUSED ON SITUATION, REASSESSMENT COMPLETED, SEE FLOW SHEET. ROOM FREE OF CLUTTER, CALL LIGHT IN REACH, WILL CONTINUE TO MONITOR PT.
--- NOTE | 2016-09-27 12:26 | NUR ---
PT AT THE BEDSIDE, ALL QUESTIONS ANSWERED, CONSENTS SIGNED. WILL CONTINUE TO MONITOR PT.
--- NOTE | 2016-09-27 12:39 | NUR ---
PT TRANSFERRED TO SPECIALS, PT ESCORTED TO WAITING ROOM
[2016-09-27 13:38] LABS: HEMATOCRIT 33.8 % (36.0-48.0); HEMOGLOBIN 10.9 g/dL (12-16)
--- NOTE | 2016-09-27 13:52 | NUR ---
I ATTEMPTED TO MEET WITH PATIENT TO DISCUSS DISCHARGE PLANNING. PATIENT WAS IN IR FOR TIPS PROCEDURE AND THEN WAS MOVED TO ANOTHER ROOM IN ICU FROM CVICU. SHE IS UNABLE TO ANSWER QUESTIONS AT THIS TIME. CM TO FOLLOW.
--- NOTE | 2016-09-27 16:00 | NUR ---
REC'D PT FROM SPECIALS, PT INTUBATED, VSS, WILL CONTINUE TO MONITOR PT.
--- NOTE | 2016-09-27 16:00 | NUR ---
REC'D PT FROM SPECIALS, PT SEDATED, ON VENT, VSS. WILL CONTINUE TO MONITOR PT.
--- NOTE | 2016-09-27 16:40 | NUR ---
OGT DROPPED, PLACEMENT CHECKED WITH AUSCULTATION, WILL CONTINUE TO MONITOR PT.
--- NOTE | 2016-09-27 17:00 | NUR ---
PT AT THE BEDSIDE,ALL QUESTIONS ANSWERED, VSS. CONSENT SIGNED FOR THORACENTSIS. WILL CONTINUE TO MONITOR PT.
--- NOTE | 2016-09-27 19:20 | NUR ---
ASSESSMENT COMPLETE. S1S2. PT SEDATED ON MECHANICAL VENT VIA ETT; 50%. O2 SAT 96%. GENERALIZED BRUISING NOTED. LAP SITE NOTED TO RIGHT ABD; DRESSING WITH LIGHT BLOOD SATURATION. RADIAL AND PEDAL PULSES PALPATED. SKIN PALE. PERRLA. ORAL CARE PROVIDED. BUTTOCKS REDDENED; BLANCHABLE.
[2016-09-27 19:58] LABS: HEMATOCRIT 33.6 % (36.0-48.0)
--- NOTE | 2016-09-27 21:21 | NUR ---
NO FAMILY AT BEDSIDE.
--- NOTE | 2016-09-27 23:00 | NUR ---
REASSESSMENT COMPLETE. NO CHANGES FROM PREVIOUS ASSESSMENT. VSS. NO DISTRESS NOTED. WILL CONTINUE TO MONITOR.
[2016-09-28] VITALS (40 sets, daily range): BP systolic 56–178; BP diastolic 40–74
[2016-09-28 01:28] LABS: HEMATOCRIT 34.1 % (36.0-48.0); HEMOGLOBIN 11.1 g/dL (12-16)
--- NOTE | 2016-09-28 01:30 | NUR ---
PT SEDATED ON VENT. VSS. NO DISTRESS NOTED. WILL CONTINUE TO MONITOR.
--- NOTE | 2016-09-28 03:20 | NUR ---
REASSESSMENT COMPLETE. NO CHANGES FROM PREVIOUS ASSESSMENT. WILL CONTINUE TO MONITOR.
[2016-09-28 05:10] LABS: BASOPHILS 0 % (0-2); EOSINOPHILS 0.3 % (0-7); HEMATOCRIT 35.1 % (36.0-48.0); HEMOGLOBIN 11.4 g/dL (12-16); IMMATURE GRANULOCYTES 0.1 % (0-5); LYMPHOCYTES 5.6 % (15-50); MCHC 32.5 g/dL (31.0-37.0); MCV 92.4 fL (80.0-100.0); MEAN PLATELET VOLUME 10.6 fL (7.4-10.4); MONOCYTES 5.2 % (2-11); NEUTROPHILS 88.8 % (40-80); RDW 21.1 % (11.5-14.5)
[2016-09-28 05:12] LABS: PLATELET COUNT 93 10x3/uL (130-400); WBC 8.6 10x3/uL (4.8-10.8)
[2016-09-28 05:19] LABS: APTT 36.4 SECONDS (22.8-39.4); INR 1.98 (0.85-1.17); PROTIME 22.5 SECONDS (11.6-15.0)
[2016-09-28 05:33] LABS: ALBUMIN 2.6 g/dL (3.4-5.0); ANION GAP 17.5 mmol/L (8-16); BILIRUBIN - TOTAL 5.32 mg/dL (0.2-1.3); CALCIUM 8.3 mg/dL (8.5-10.1); CARBON DIOXIDE 21.8 mmol/L (21.0-32.0); CREATININE - SERUM 1.1 mg/dL (0.6-1.3); MAGNESIUM - SERUM 1.5 mg/dL (1.8-2.4); PHOSPHOROUS 3.9 mg/dL (2.5-4.9); POTASSIUM - SERUM 4.3 mmol/L (3.5-5.1); PROTEIN - SERUM 5.8 g/dL (6.4-8.2)
--- NOTE | 2016-09-28 07:00 | NUR ---
REC'D REPORT AND RESUMED CARE, ETT TO VENTILATION AND SECURED, IN AC MODE WITH A RATE OF 16, AND GO% FIO2, OGT WITH YELLOWISH ORANGE DRAINAGE TO CONTAINER, LEFT AC PIV SL, LT AC PIV WITH PROPOFAL AT 25 MCG, PROTONIX AT 10, SANDOSTATIN AT 50 MCG, NS AT AT 75 CC/HR, HANKINS TO GRAVITY WITH CONCENTRATED DRAINAGE TO BAG, ASSESSMENT COMPLETE PER FLOWSHEET, REPOSITIONED TO BACK WITH HEELS FLOATED, DOES NOT OPEN EYES OR FOLLOW COMMANDS
[2016-09-28 09:12] LABS: HEMATOCRIT 35.5 % (36.0-48.0); HEMOGLOBIN 11.6 g/dL (12-16)
--- NOTE | 2016-09-28 09:25 | NUR ---
TO IR WITH PERSONNEL X2, PORTABLE VENT IN USE, VSS, CONTINUES ON PROPOFAL AT 25 MCG, FIO2 AT 50%, BRIDGET STATIN AT 50 MCG, NS AT 75CC/HR, OGT CLAMPED,
--- NOTE | 2016-09-28 09:34 | NUR ---
Nutrition follow-up: Pt NPO s/p TIPS procedure Scheduled for thoracentesis Pt remains intubated OGT placed Labs reviewed Recommend starting TF of Pulmocare @ 20 ml/hr with increase to goal rate of 45 ml/hr RDN following.
--- NOTE | 2016-09-28 10:25 | NUR ---
BACK FROM IR, RECONNECTED TO ICU MOINTORS, VSS, ORAL CARE AND SUCTION, COMPLETED
--- NOTE | 2016-09-28 11:00 | NUR ---
RESTING WITH NO SIGNS OF DISTRESS, VSS, ORAL CARE AND SUCTION COMPLETED, ASSESSMENT COMPLETE PER FLOWSHEET, NO ACUTE CHANGE FROM PREVIOUS
--- NOTE | 2016-09-28 11:12 | CN ---
PATIENT NAME:JEF QUAN MEDICAL RECORD: [id number] : 55 LOCATION:[id number] ADMIT DATE: 09/26/16 ACCOUNT: [id number] CONSULTING PHYSICIAN: KENIA PARHAM MD REFERRING PHYSICIAN: JONE JOE M.D. DATE OF CONSULTATION: 09/27/2016 Gastroenterology Consultation REFERRING PHYSICIAN: Jone Joe MD. HISTORY OF PRESENT ILLNESS: The patient is a 60-year-old white female with a history of chronic active hepatitis C infection with known cirrhosis. Interestingly enough, she has actually started antiviral treatment by an outside physician a couple of weeks ago, who basically was admitted with acute onset of recurrent hematemesis. She has similar episode on 09/15/2016, which she was admitted and underwent an EGD by Dr. Campos, which revealed esophageal varices. He banded her varices 5 times. She seemed to stop bleeding with that and actually was discharged home a few days afterwards; however, she is admitted with recurrent symptoms last night. PAST MEDICAL HISTORY: As above. She also has diabetes, coronary artery disease, status post CABG and hypertension. ALLERGIES: PENICILLIN. MEDICATIONS: Glucophage, Zepatier, ribavirin, fentanyl patch, gabapentin and Lasix. FAMILY HISTORY: Negative for GI disease. SOCIAL HISTORY: The patient is a longtime smoker. She denies alcohol use. REVIEW OF SYSTEMS: Noncontributory other than in the HPI. PHYSICAL EXAMINATION: GENERAL: Reveals an elderly white female in moderate distress. VITAL SIGNS: Stable. She is afebrile. HEENT: Unremarkable. NECK: Supple. CHEST: Clear anteriorly. HEART: Regular rate and rhythm. ABDOMEN: Soft and nontender. She is protuberant from some ascites. EXTREMITIES: No edema. LABORATORY DATA: Reveals a white count of 3000, hematocrit 33, MCV of 93, platelet count 67,000. Sed rate is 5. Electrolytes normal. BUN 23, creatinine 1. Total bilirubin is 1.7, AST 51, ALT 37, albumin 2.7. Alpha-fetoprotein is 14. IMPRESSION: Recurrent variceal bleed due to her known cirrhosis from hepatitis C infection. RECOMMENDATION: In light of her failing recent esophageal banding, she probably needs to be treated with TIPS procedure. I have already discussed with CONSULT REPORT [id number] JEF QUAN with interventional radiology about this and he agrees. He is planning to proceed with that procedure later on today. TRANSINT:[id number] Voice Confirmation ID: [id number] DOCUMENT ID: [id number] KENIA PARHAM MD at 1112 CC: [id number] DICTATION DATE: 09/27/161848 DIVING SUPERVISOR: 09/28/16 0221 [facility] [place] [id number] [place] [address]
[2016-09-28 12:29] LABS: HEMATOCRIT 32.9 % (36.0-48.0); HEMOGLOBIN 10.5 g/dL (12-16)
[2016-09-28 12:45] LABS: PROTEIN - BODY FLUID 3.3 G/DL
--- NOTE | 2016-09-28 15:12 | NUR ---
SPOUSE AT BEDSIDE, STATUS UPDATED, STATES THAT WEARS A 25 MCG FENTANYL PATCH AND HAS NOT HAD ON SINCE 09/24, AND ALSO TAKES MEDICATION FOR HEPATITIS C, HE WILL BRING MEDS IN FOR EVAL BY PHARMACY SO PATIENT CAN USE OWN HOME MED, NO OTHER NEEDS AT THIS TIME
--- NOTE | 2016-09-28 16:33 | NUR ---
DECREASED FIO2 TO 40%.
--- NOTE | 2016-09-28 16:55 | NUR ---
NS 250 BOLUS GIVEN PER ORDER SBP 68
--- NOTE | 2016-09-28 17:00 | NUR ---
AIR OVERLAY MATRESS PLACED PER PROTOCAL
--- NOTE | 2016-09-28 17:35 | NUR ---
PC TO ABRAHAM VALENTINE GIVEN TO USE PATIENTS HOME MED FOR HEP C TREATMENT, MEDS TAKEN TO PHARMACY FOR PATIENT LABELING
--- NOTE | 2016-09-28 17:40 | NUR ---
NS 250 BOLUS GIVEN PER ORDER, SBP 64
--- NOTE | 2016-09-28 18:05 | NUR ---
LEVAPEHD INITIATED AT 5 MCG
--- NOTE | 2016-09-28 18:15 | NUR ---
SBP 117, WITH MAP OF 68, LEVAPHED CONTINUES AT 5 MCG
--- NOTE | 2016-09-28 19:00 | NUR ---
1900: Pt has left upper arm PIV with mannifold attached with Diprivan, Sandostaton, Protonix, NS, and Levophed gtt infusing. Attempted multipe IVs per multiple RNs.
--- NOTE | 2016-09-28 20:00 | NUR ---
2000: Discussed CVL placement needs with . Discussed risks vs benifits with via phone. verbalized understanding and wished to proceed with CVL placement.
--- NOTE | 2016-09-28 20:45 | NUR ---
2045: Anesthesia here at bedside. Right IJ CVL placed at this time under sterile technique with US. PCXR ordered.
--- NOTE | 2016-09-28 21:00 | NUR ---
2100: Bilateral knee high SCDs placed.
[2016-09-29] VITALS (90 sets, daily range): BP systolic 67–171; BP diastolic 29–110
--- NOTE | 2016-09-29 01:00 | NUR ---
0100: Pt remains on vent with RR 20x with SPO2 96%. Pt remains on Diprivan for sedation. Pt SBP <90 and continue to titrate Levophed gtt to keep SBP >90. No bleeding seen at this time. Pt remains on Sandostatin and Protonix IV gtts.
[2016-09-29 02:10] LABS: BASOPHILS 0.1 % (0-2); EOSINOPHILS 0.1 % (0-7); HEMATOCRIT 35.1 % (36.0-48.0); HEMOGLOBIN 11.1 g/dL (12-16); IMMATURE GRANULOCYTES 0.3 % (0-5); LYMPHOCYTES 3.3 % (15-50); MCH 30.1 pg (26.0-34.0); MCHC 31.6 g/dL (31.0-37.0); MCV 95.1 fL (80.0-100.0); MEAN PLATELET VOLUME 11.2 fL (7.4-10.4); MONOCYTES 7.8 % (2-11); NEUTROPHILS 88.4 % (40-80); PLATELET COUNT 116 10x3/uL (130-400); RBC 3.69 10x6/uL (4.00-5.40); RDW 22.9 % (11.5-14.5); WBC 15.6 10x3/uL (4.8-10.8)
--- NOTE | 2016-09-29 03:00 | NUR ---
0300: Pt continues with hypotension. Continue to titrate levophed to keep SBP >90. CBC also drawn at this time, no bleeding seen, no BMs, and pt also remains ST 120's and afenrile 98F oral temp.
[2016-09-29 03:49] LABS: BASOPHILS 0.1 % (0-2); EOSINOPHILS 0.1 % (0-7); HEMATOCRIT 36.5 % (36.0-48.0); HEMOGLOBIN 11.6 g/dL (12-16); IMMATURE GRANULOCYTES 0.2 % (0-5); LYMPHOCYTES 3.5 % (15-50); MCH 30.2 pg (26.0-34.0); MCHC 31.8 g/dL (31.0-37.0); MCV 95.1 fL (80.0-100.0); MEAN PLATELET VOLUME 10.3 fL (7.4-10.4); MONOCYTES 8.2 % (2-11); NEUTROPHILS 87.9 % (40-80); PLATELET COUNT 112 10x3/uL (130-400); RBC 3.84 10x6/uL (4.00-5.40); RDW 22.8 % (11.5-14.5); WBC 17.1 10x3/uL (4.8-10.8)
[2016-09-29 04:07] LABS: ALBUMIN 2.3 g/dL (3.4-5.0); ANION GAP 23.7 mmol/L (8-16); BILIRUBIN - TOTAL 9.16 mg/dL (0.2-1.3); CALCIUM 8.3 mg/dL (8.5-10.1); CARBON DIOXIDE 15.7 mmol/L (21.0-32.0); CREATININE - SERUM 1.2 mg/dL (0.6-1.3); POTASSIUM - SERUM 4.4 mmol/L (3.5-5.1); PROTEIN - SERUM 5.2 g/dL (6.4-8.2)
--- NOTE | 2016-09-29 05:40 | NUR ---
0540: Pt continues with hypotension SBP 70's with Levophed max 30 mcg/min. AM Lab results returned and called to Dr. Donald at this time. New orders rec'd and noted. Will wean Sandostatin gtt as ordered.
--- NOTE | 2016-09-29 06:30 | NUR ---
0630: Pt continues with hypotension. Vasopressin gtt started 0.04 units/hr.
--- NOTE | 2016-09-29 07:30 | NUR ---
REC'D REPORT FROM OUTGOING RN - PT LYING IN BED - HYPOTESIVE AND TACHYCARDIA NOTED - INFORMED JOB PRESS OPERATOR WHO ASSISTED WITH POC FOR PT.
--- NOTE | 2016-09-29 08:00 | NUR ---
STOPPED PROPROFOL R/T HYPOTENSION - PAGERolf HENRY - R/T HYPOTENSION - 70/29 (MAP 35) - SOLAR SALES REPRESENTATIVE AND ASSESSOR AT BEDSIDE FOR ASSISTANCE - REC'D ORDERS FOR ADDITIONAL VASOPRESSIN (PHENYLEPHRINE), 0825 SOLAR SALES REPRESENTATIVE AND ASSESSOR MIXED PHENYLEPHRINE 20MG/NS 100ML FOR IV. 0840 DR. HENRY ON UNIT FOR ASSESSMENT - SEE MD NOTES - LACTIC ACID AT 14.7, AMONIA 100, REC'D ORDER FOR 60ML ORAL NOW. REVIEWED BUN 22 CREAT 1.2. INSTRUCTED TO START ATB LEOQUIN 750 FOR 24 HOURS CONSULT FOR SUZANNA - (INFORMED DR. ELAINE SAM IS OUT OF TOWN) 0830 DR HENRY INSTRCUTED TO PAGE DR. JOE - AGNES SAM - 0840 REVIEWED HYPOTESION AND TACHYCARDIA WITH MD - REVIEWED LABS WITH MD - INSTURCTED TO GIVE 1000ML/NS BOLUS ORDER FOR ADDITIONAL BROAD BAND ATNTIBIOTICS (DOXYCYLINE AND MERRIPEN). 0910 - THREE VASOPRESSORS INFUSING - TITRATE PER POLICY - PT'S B/P BEGINNING TO REPSPOND TO (ADDITIONAL) PHYENYLEPRINE IV MED.
--- NOTE | 2016-09-29 10:00 | NUR ---
DR. JOE ON UNIT FOR ASSESSMENT - ORDERS FOR CARDIAC ENZYME LABS AND ECHO - INFORMED MED II TECH - DR. LEAL TO REVIEW RESULTS.
[2016-09-29 11:13] LABS: AMYLASE - SERUM 92 U/L (25-115); LIPASE 186 U/L (73-393)
[2016-09-29 11:49] LABS: CKMB 7.3 U/L (0.0-3.6); CREATINE KINASE 271 UL (21-215)
--- NOTE | 2016-09-29 12:00 | NUR ---
INFORMED OF CRITICAL LABS - HAD STATED HE WILL BE IN HOSPITAL AND WILL F/U ON LAB AND ECHO RESULTS
--- NOTE | 2016-09-29 12:30 | NUR ---
TRAUMA DIRECTOR AT BEDSIDE TO REQUEST TO COORDINATE WITH RT TO TRANSPORT PT TO CT, AND THIS RN GIVIGN CT CONTRAST VIA OG TUBE ONE HOUR PRIOR TO CT SCAN CPOC
--- NOTE | 2016-09-29 13:00 | NUR ---
RESP THERAPIST AGREED TO COORDINATE TRANSFERRING PT TO CT AT 1400. INFORMED ELECTROPHYSIOLOGY TECHNOLOGIST - CPOC
--- NOTE | 2016-09-29 13:15 | NUR ---
STARTED GIVING CT CONTRAST VIA OG TUBE - WILL GIVE OVER 60 MINUTES
--- NOTE | 2016-09-29 13:30 | NUR ---
PT HAD DARK, THICK MUCUS, STOOL - SAMPLE SENT TO LAB PER ORDER
--- NOTE | 2016-09-29 14:12 | NUR ---
PT READY FOR CT SCAN. CPOC
--- NOTE | 2016-09-29 14:40 | NUR ---
TRANSFERRED TO CT WITH TIMES 5 ASSISTANCE (2 CT TECHs, RT, AND 2 RNs) PT ON MECHANICAL VENTALATION. CPOC
--- NOTE | 2016-09-29 15:30 | NUR ---
DISCUSSED PT'S CONDITION WITH PT - AIR SURVEILLANCE OPERATOR CALLED DR. TINSLEY TO DISCUSS PLAN OF CARE WITH . THIS RN COMPLETED MEDICATION RECONCILATION - SEE CHART
[2016-09-29] MEDS ORDERED: LISINOPRIL10 MG PO (15:50)
[2016-09-29] MEDS ORDERED: FUROSEMIDE20 MG PO (15:53)
--- NOTE | 2016-09-29 15:56 | NUR ---
MICRO TECH REPORTED C-DIFF +, ENTERIC ISOLATION PUT INTO PLACE
[2016-09-29 16:09] LABS: ACID FAST SMEAR Negative (()); AFB SPECIMEN PROCESSING Not Indicated (())
--- NOTE | 2016-09-29 17:30 | NUR ---
AGNES JOE - CALLED THIS RN - REVIEWED IR MD ON UNIT - SUGGESTED CARDIOLOGY CONSULT - DR. JOE AGREED TO CARDIOLOGY CONSULT - INSTRUCTED THIS RN TO INFORM DR. LEAL THIS IS NOT A 'REYES' CONSULT - DR. LEAL MAY WAIT UNTIL A.M. FOR ASSESSMENT - ORDERS FOR FECAL TUBE PLACEMENT - AND SUGGESTED QUESTERAN RX IF NEEDED. WILL INFORM PM RN OF THIS SUGGESTION. PT TAKING LACTULOSE TO RESOLVE AMMONIA LEVEL. CPOC
--- NOTE | 2016-09-29 18:00 | NUR ---
PAGED DR. LEAL - SPOKE TO MD - INFORMED OF REASON FOR CARDIOLOGY CONSULT AND PCP/MD AGREED FOR DR. LEAL TO ASSESS PT IN A.M. DR. LEAL CONFIRMED HE WOULD BE ON UNIT IN A.M. STILL AWAITING ECHO RESULTS TO BE POSTED IN CHART
--- NOTE | 2016-09-29 18:08 | NUR ---
AT BEDSIDE FOR ASSESSMENT - REVIEWED C-DIFF PRECAUTIONS AND THE DIRECTOR DRUG SAFETY CONSULT WITH - NO NEW CONCERNS VOICED.
--- NOTE | 2016-09-29 20:00 | NUR ---
1999: Pt remains on Vent with RR 24x with SPO2 96%. Pt remains ST 110-120 bpm with SBP 140-150. Multiple vasopressors in use and will continue to titrate as per orders. Pt remains with TF infusing via feed pump to NGT with 40cc residual ret'd. Rectal tube to gravity drainage with reddish liquid drainage with some montaño particles seen.
--- NOTE | 2016-09-29 21:00 | NUR ---
2100: Complete bath and linen change done at this time per 2 RNs without difficulty. Pt remains off sedation gtt at this time. Pt remains unresponsive at this time. Pt does not grimmace to pain stimuli or blink to threat. Pt remains in bilateral soft wrist restraints, but did not move extrem during bath process. Pt remains inubated.
[2016-09-30] VITALS (88 sets, daily range): BP systolic 82–176; BP diastolic 37–94
--- NOTE | 2016-09-30 02:00 | NUR ---
0200: Pt weeping from RLQ insertion site (paracentesis) yellow liquid; dressing applied to site. Pt left arm also weeping and absorbent pads placed underneath. Pt ABG value reviewed. Pt continues with RR 28x. Diprivan gtt restarted and set rate on Vent reduced to 16 at this time. Continue to titrate multiple vasopressors to keep SBP >90. Pt remains ST on CM 120-130 bpm.
[2016-09-30 05:10] LABS: BASOPHILS 0 % (0-2); EOSINOPHILS 0 % (0-7); HEMATOCRIT 30.8 % (36.0-48.0); IMMATURE GRANULOCYTES 0.3 % (0-5); LYMPHOCYTES 6.8 % (15-50); MCH 29.9 pg (26.0-34.0); MCHC 29.9 g/dL (31.0-37.0); MEAN PLATELET VOLUME 11.3 fL (7.4-10.4); MONOCYTES 7.2 % (2-11); NEUTROPHILS 85.7 % (40-80); RBC 3.08 10x6/uL (4.00-5.40); RDW 24.4 % (11.5-14.5)
[2016-09-30 05:14] LABS: HEMOGLOBIN 9.2 g/dL (12-16); WBC 7.8 10x3/uL (4.8-10.8)
[2016-09-30 05:15] LABS: PLATELET COUNT 49 10x3/uL (130-400)
[2016-09-30 05:51] LABS: ANION GAP 25.9 mmol/L (8-16); BILIRUBIN - TOTAL 9.35 mg/dL (0.2-1.3); CALCIUM 7.8 mg/dL (8.5-10.1); CARBON DIOXIDE 12.4 mmol/L (21.0-32.0); POTASSIUM - SERUM 4.3 mmol/L (3.5-5.1); PRE-ALBUMIN 4.7 mg/dL (18.0-35.7)
[2016-09-30 05:52] LABS: ALBUMIN 1.7 g/dL (3.4-5.0); CREATININE - SERUM 1.7 mg/dL (0.6-1.3)
[2016-09-30 05:58] LABS: PROTIME > 120.0 SECONDS (11.6-15.0)
--- NOTE | 2016-09-30 06:00 | NUR ---
0600: Pt remains on vent with RR24x with SPO2 95%. Pt remains on Levophed and Vasopressin gtts and continue to titrate to keep SBP >90. Neosynephrine off. Pt continues with weeping as previously documented.
--- NOTE | 2016-09-30 08:09 | NUR ---
FOUND VENTILATOR HEATER TURNED OFF DURING THE FIRST VENTILATOR CHECK. TURNED ON HEATER, IT IS AT 36.8 DEGREES.
[2016-09-30 11:16] LABS: BASOPHILS 0 % (0-2); EOSINOPHILS 0.1 % (0-7); HEMATOCRIT 31.2 % (36.0-48.0); HEMOGLOBIN 9.3 g/dL (12-16); IMMATURE GRANULOCYTES 0.3 % (0-5); LYMPHOCYTES 6.2 % (15-50); MCH 30.5 pg (26.0-34.0); MCHC 29.8 g/dL (31.0-37.0); MCV 102.3 fL (80.0-100.0); MEAN PLATELET VOLUME 11.8 fL (7.4-10.4); MONOCYTES 8.3 % (2-11); NEUTROPHILS 85.1 % (40-80); RBC 3.05 10x6/uL (4.00-5.40); RDW 25.1 % (11.5-14.5); WBC 10.1 10x3/uL (4.8-10.8)
[2016-09-30 11:18] LABS: PLATELET COUNT 44 10x3/uL (130-400)
[2016-09-30 11:36] LABS: PROTIME > 120.0 SECONDS (11.6-15.0)
[2016-09-30 13:05] LABS: BILIRUBIN - DIRECT 5.45 mg/dL (0.00-0.30); BILIRUBIN - INDIRECT 4.53 mg/dL (0.00-1.00); BILIRUBIN - TOTAL 9.98 mg/dL (0.2-1.3); VANCOMYCIN - TROUGH 20.9 ug/mL (10.0-20.0)
[2016-09-30 17:02] LABS: BASOPHILS 0 % (0-2); EOSINOPHILS 0 % (0-7); HEMATOCRIT 25.8 % (36.0-48.0); HEMOGLOBIN 7.6 g/dL (12-16); IMMATURE GRANULOCYTES 0.3 % (0-5); LYMPHOCYTES 5.7 % (15-50); MCH 29.7 pg (26.0-34.0); MCHC 29.5 g/dL (31.0-37.0); MCV 100.8 fL (80.0-100.0); MEAN PLATELET VOLUME 10.4 fL (7.4-10.4); MONOCYTES 7.9 % (2-11); NEUTROPHILS 86.1 % (40-80); RBC 2.56 10x6/uL (4.00-5.40); WBC 6.6 10x3/uL (4.8-10.8)
[2016-09-30 17:03] LABS: APTT 42.6 SECONDS (22.8-39.4); INR 3.25 (0.85-1.17); PLATELET COUNT 34 10x3/uL (130-400)
[2016-09-30 17:04] LABS: PROTIME 33.5 SECONDS (11.6-15.0)
[2016-09-30 17:09] LABS: BILIRUBIN - DIRECT 5.91 mg/dL (0.00-0.30); BILIRUBIN - INDIRECT 5.46 mg/dL (0.00-1.00); BILIRUBIN - TOTAL 11.37 mg/dL (0.2-1.3); PROTEIN - SERUM 4.9 g/dL (6.4-8.2)
[2016-09-30 17:12] LABS: ALBUMIN 2.3 g/dL (3.4-5.0)
--- NOTE | 2016-09-30 19:10 | NUR ---
ASSESSMENT COMPLETED. SEE FLOW SHEET. 7.0 ETT TAPED AT LIP LINE. VENT SETTINGS PER FLOW SHEET. OGT WITH PULMOCARE @ 20CC/HR VIA PUMP, RESIDUAL = 90CC. RT TLIJ, BHARATHIG C-D-I, IVF PER FLOW SHEET, SBP 178, VASOPRESSIN AND LEVOPHED TURNED OFF AT THIS TIME. WILL CONT TO MONITOR. HANKINS CATH INTACT WITH DEE COLORED URINE IN BAG. RECTAL TUBE INTACT WITH DARK LIQUID FECES IN BAG. UPPER EXTREMITY WEEPING EDEMA AND LOWER EXTREMITY GENERALIZED EDEMA. ST WITH PAC'S ON THE MONITOR.
[2016-09-30 19:43] LABS: HEMATOCRIT 27.2 % (36.0-48.0)
--- NOTE | 2016-09-30 20:25 | NUR ---
DR TINSLEY HERE. NEW ORDERS RECIEVED.
--- NOTE | 2016-09-30 20:54 | NUR ---
DR TINSLEY NOTIFIED OF ABG'S. NEW ORDERS RECIEVED.
--- NOTE | 2016-09-30 21:00 | NUR ---
NO VISITOR'S AT THIS TIME. ST WITH PAC'S ON THE MONITOR.
--- NOTE | 2016-09-30 23:00 | NUR ---
REASSESSMENT COMPLETED. SEE FLOW SHEET.
[2016-10-01] VITALS (67 sets, daily range): BP systolic 87–141; BP diastolic 44–95
[2016-10-01 00:22] LABS: HEMATOCRIT 21.6 % (36.0-48.0)
[2016-10-01 00:24] LABS: HEMOGLOBIN 6.7 g/dL (12-16)
--- NOTE | 2016-10-01 01:00 | NUR ---
NO CHANGES AT THIS TIME. ST WITH PAC'S ON THE MONITOR.
--- NOTE | 2016-10-01 07:05 | NUR ---
REPORT RECD PT CARE ASSUMED. PT IS LIGHTLY SEDATED ON VENTIALTOR. PT DOES NOT RESPOND TO STIMULI AT THIS TIME. S1S2 NOTES, SR PER CM. ADVENTICIOUS LUNG SOUNDS BILAT. PT HAS HANKINS/RT/SCDS IN PLACE AT THIS TIME. WEEPING NOTED FROM BILAT UPPER EXTREMITIES. BP LOW AT THIS TIME, LEVOPHED REINITIIATED. PT HAS DRESSING TO LEFT ABD FROM INCISION SITE. ABD IS TIGHT, DISTENDED, BOWEL SOUNDS ABSENT. PPP-WEAK. VSS WILL MONITOR.
[2016-10-01 07:32] LABS: BASOPHILS 0 % (0-2); EOSINOPHILS 0.2 % (0-7); IMMATURE GRANULOCYTES 0.5 % (0-5); LYMPHOCYTES 8.7 % (15-50); MCH 30.7 pg (26.0-34.0); MCHC 31.3 g/dL (31.0-37.0); MEAN PLATELET VOLUME 10.4 fL (7.4-10.4); MONOCYTES 6.3 % (2-11); NEUTROPHILS 84.3 % (40-80); RBC 3.03 10x6/uL (4.00-5.40); RDW 21.8 % (11.5-14.5)
[2016-10-01 07:41] LABS: HEMATOCRIT 29.7 % (36.0-48.0); HEMOGLOBIN 9.3 g/dL (12-16); WBC 4.3 10x3/uL (4.8-10.8)
[2016-10-01 07:43] LABS: PLATELET COUNT 40 10x3/uL (130-400)
[2016-10-01 08:12] LABS: APTT 40.7 SECONDS (22.8-39.4); PROTIME 38.9 SECONDS (11.6-15.0)
[2016-10-01 08:16] LABS: FIBRINOGEN 91 mg/dL (239-481)
[2016-10-01 08:28] LABS: ALBUMIN 2.3 g/dL (3.4-5.0); ALKALINE PHOSPHATASE 414 U/L (46-116); CALCIUM 8.2 mg/dL (8.5-10.1); CHLORIDE - SERUM 106 mmol/L (98-107); MAGNESIUM - SERUM 1.9 mg/dL (1.8-2.4); PHOSPHOROUS 5.9 mg/dL (2.5-4.9); PROTEIN - SERUM 4.8 g/dL (6.4-8.2); SODIUM 146 mmol/L (136-145); UREA NITROGEN 23 mg/dL (7-18)
[2016-10-01 08:35] LABS: ALT (SGPT) 1805 U/L (10-68); CARBON DIOXIDE 19.5 mmol/L (21.0-32.0); CREATINE KINASE 6318 UL (21-215); CREATININE - SERUM 2.6 mg/dL (0.6-1.3); LDH 2829 U/L (81-234); POTASSIUM - SERUM 3.6 mmol/L (3.5-5.1); TROPONIN-I 16.379 ng/mL (0.000-0.060); eGFR NON AFRICAN AMERICAN 20 mL/min (90-120)
[2016-10-01 08:36] LABS: CALC OSMOLALITY 311 mosm/kg (275-300); GLUCOSE 400 mg/dL (74-106)
[2016-10-01 08:38] LABS: INR 3.92 (0.85-1.17)
[2016-10-01 08:39] LABS: D-DIMER-QUANTITATIVE > 20.00 ug/mLFEU (0.20-0.54)
--- NOTE | 2016-10-01 09:00 | NUR ---
NO VISITORS AT THIS TIME. PT RECS PARTIAL LINEN CHANGE AND IS REPOSTIONED. VSS.
[2016-10-01 09:03] LABS: CKMB 52.1 U/L (0.0-3.6)
--- NOTE | 2016-10-01 10:00 | NUR ---
06/03 PRBC INFUSING PER STANDING ORDERS.
--- NOTE | 2016-10-01 11:00 | NUR ---
DR CAZARES SPOKE WITH REGAURDING PT CONDITION AND CODE STATUS. WILL RE-EVALUATE WITH FAMILY. PT VSS. WILL MONITOR.
--- NOTE | 2016-10-01 11:15 | NUR ---
Nutrition Follow Up: Chart reviewed. Pt is tolerating Pulmocare @ 20 ml/hr. Meds noted including Diprivan @ 7 providing 185 kcal, Lasix, Lactulose, Vaso, Levo, Flagyl. Labs reviewed. Will put order in to advance TF 10 ml every 6-8 hours as tolerated to goal rate of 45 ml/hr (other kcal source Diprivan). RD will continue to monitor pt progress.
--- NOTE | 2016-10-01 13:00 | NUR ---
PT REPOSITONED PER PROTOCOL. PT CONTINUES TO WEEP, PARTIAL LINEN CHANGE PROVIDED.
[2016-10-01 13:12] LABS: FUNGUS STAIN Final report (())
[2016-10-01 15:57] LABS: HEMATOCRIT 34.6 % (36.0-48.0); HEMOGLOBIN 10.9 g/dL (12-16)
--- NOTE | 2016-10-01 16:39 | NUR ---
OGT RESIDUALS >250CC AT THIS TIME, TUBE FEEDING HELD. CVL DRESSING NO LONGER CLEAN AND OCCLUSIVE, NEW DRESSING APPLIED. H+H STABLE AT THIS TIME PER REDRAW. VSS, WILL MONITOR.
--- NOTE | 2016-10-01 18:43 | NUR ---
PT FAMILY AT BEDSIDE AT THIS TIME. PT FAMILY VOICES THAT THEY WOULD LIKE TO PULL LIFE SUPPORT. WILL CALL DR CAZARES TO PROCEED.
--- NOTE | 2016-10-01 19:45 | NUR ---
DR CAZARES NOTIFIED OF FAMILY WISHES FOR TERMINAL EXTUBATION. AGREES WITH DECISION. NEW ORDERS RECIEVED.
--- NOTE | 2016-10-01 20:15 | NUR ---
LILLY MCKENNA NOTIFIED OF FAMILY WISHES FOR TERMINAL EXTUBATION. AGREES. SPOKE WITH AND SON, EXPLAINED THE PROCESS. WILL CONT TO MONITOR.
--- NOTE | 2016-10-01 20:20 | NUR ---
DR ALMAZ ALARCON
--- NOTE | 2016-10-01 20:34 | NUR ---
MORPHINE 10MG IV GIVEN PER ORDERS. SON AT BEDSIDE. IN THE WAITING ROOM. WILL CONT TO MONITOR PT AND FAMILY.
--- NOTE | 2016-10-01 21:00 | NUR ---
PT EXTUBATED PER ORDERS PER VALERI MADRIGAL RT AND MYSELF. SON AT BEDSIDE.
--- NOTE | 2016-10-01 21:05 | NUR ---
PT WITH AGONAL RESP. MORPHINE 4MG IV GIVEN PER ORDERS.
--- NOTE | 2016-10-01 21:15 | NUR ---
CONTINUE WITH AGONAL RESP. ATIVAN 2MG IV GIVEN PER ORDERS. SON AT BEDSIDE.
--- NOTE | 2016-10-01 21:25 | NUR ---
AT BEDSIDE. COMFORT GIVEN TO AND SON. NO NEEDS VOICED.
--- NOTE | 2016-10-01 21:26 | NUR ---
PT WITHOUT RESP OR HR. SON AT BEDSIDE. PAGED JONATHAN MCKENNA. NOTIFIED Gabrielle GRIMES RN, TACTICAL DECEPTION PLANS OFFICER.
--- NOTE | 2016-10-01 21:30 | NUR ---
LILLY MCKENNA CALLED. TRANSFERRED TO ED FOR TO PRONOUNCE.
--- NOTE | 2016-10-01 23:00 | NUR ---
HOME HERE FOR PT
--- NOTE | 2016-10-02 10:11 | NUR ---
PER CMS PROTOCOL, RESTRAINT REPORT LOGGED INTO DATA BASE.
--- NOTE | 2016-10-04 10:59 | EC ---
PATIENT:JEF QUAN DATE OF SERVICE: 09/26/16 SEX: F MEDICAL RECORD: [id number] DATE OF : 55 LOCATION:D.[facility] D230 AGE OF PATIENT: 60 ADMISSION DATE: 09/26/16 REFERRING PHYSICIAN: INTERPRETING PHYSICIAN: SHERRI PETERSEN M.D. ECHOCARDIOGRAM REPORT ECHO CHARGES 4 ECHO COMPLETE CLINICAL DIAGNOSIS: ASSESS FOR CARDIOCGENIC SHOCK/SEPSIS ECHOCARDIOGRAPHIC MEASUREMENTS (adult normal given) AC root (d.<3.7cm) 3.6 LV Septum d (<1.2 cm> 1.4 Valve Excursion 1.6 LV Septum (systole) 1.5 Left Atria (s.<4.0cm> 3.8 LVPW d(<1.2cm) 1.5 RV (d.<2.3cm) 3.8 LVPW (sytole) 1.6 LV diastole(<5.6CM) 5.0 MV E-F(>70mm/sec) LV systole 3.6 LVOT Diameter 2.0 MV exc.(>10mm) 1.5 Est.ejection fraction (50-75%) Pericardial Effusion N DOPPLER: LVIT A 112 E 181 LA RVSP 47 LVOT 140 AOP1/2T Asc. Ao 168 RVOT 113 RA PA 193 AV Gradient Peak 11.34 AV Mean 6.60 AV Area 2.5 MV Gradient Peak 19.36 MV Mean 9.35 MV Area COMMENTS: Glaze Wiper: Ramya OWEN Rheumatology Specialist:2 Dr. Petresen TAPE# PACS DATE OF SERVICE: 09/29/2016 REFERRING PHYSICIAN: Ron Jang M.D. INDICATION: Cardiogenic shock. DESCRIPTION: Left ventricle demonstrates left ventricular hypertrophy. Systolic function is well preserved. Her ejection fraction is in the order of 55% to 60%. Mitral valve leaflets are thickened. There is trivial regurgitation seen. There is no evidence of prolapse. Left atrium is normal ECHOCARDIOGRAM REPORT [id number] JEF QUAN size. The aortic valve is trileaflet. There is mild insufficiency seen. Her ventricles are mildly dilated. Tricuspid valve is structurally normal. There is mild to moderate regurgitation noted. Right ventricular systolic pressure is elevated at 47 mmHg. There is no pericardial effusion seen. IMPRESSION: 1. Left ventricular hypertrophy with preserved ejection of 55% to 60%. 2. Mild aortic insufficiency. 3. Mild to moderate tricuspid regurgitation with elevated pulmonary pressures. TRANSINT:[id number] Voice Confirmation ID: [id number] DOCUMENT ID: [id number] SHERRI PETERSEN M.D. at 1059 CC: [id number] DICTATION DATE: 09/29/16 172 FOAMING MACHINE OPERATOR: 09/30/16 0218 DIS IN 10/01/16 [facility] [address] [id number]
== END 2016-10-01 21:19 | DRG 405 ==
LOC: D.ER 19:19 → D.CVICU 21:37 → D.ICU 21:37 → D.CVICU 23:55 → D.ICU 09-27 14:11
PROVIDERS: Emergency Medicine; General Practice; Internal Medicine Gastroenterology; Internal Medicine Nephrology; Internal Medicine Pulmonary Disease; Radiology Diagnostic Radiology; ADMIT Family Medicine
PROC: 0T9B70Z Drainage of Bladder with Drainage Device, Via Natural or Artificial Opening (ICD-10-PCS; principal; 2016-09-26)
PROC: 06183DY (ICD-10-PCS; 2016-09-27)
PROC: 0W9G3ZZ Drainage of Peritoneal Cavity, Percutaneous Approach (ICD-10-PCS; 2016-09-27)
PROC: 5A1955Z Respiratory Ventilation, Greater than 96 Consecutive Hours (ICD-10-PCS; 2016-09-27)
PROC: 05HM33Z Insertion of Infusion Device into Right Internal Jugular Vein, Percutaneous Approach (ICD-10-PCS; 2016-09-28)
PROC: 0W993ZZ Drainage of Right Pleural Cavity, Percutaneous Approach (ICD-10-PCS; 2016-09-28)
PROC: B543ZZA Ultrasonography of Right Jugular Veins, Guidance (ICD-10-PCS; 2016-09-28)
DX: K74.60 Unspecified cirrhosis of liver (principal); I85.11 Secondary esophageal varices with bleeding; J95.821 Acute postprocedural respiratory failure; K72.00 Acute and subacute hepatic failure without coma; A41.9 Sepsis, unspecified organism; R65.21 Severe sepsis with septic shock; N17.0 Acute kidney failure with tubular necrosis; J69.0 Pneumonitis due to inhalation of food and vomit; J98.11 Atelectasis; J90 Pleural effusion, not elsewhere classified; K76.6 Portal hypertension; D62 Acute posthemorrhagic anemia; D61.818 Other pancytopenia; D68.9 Coagulation defect, unspecified; E87.1 Hypo-osmolality and hyponatremia; S06.0X9A Concussion with loss of consciousness of unspecified duration, initial encounter; B19.20 Unspecified viral hepatitis C without hepatic coma; Y84.8 Other medical procedures as the cause of abnormal reaction of the patient, or of later complication, without mention of misadventure at the time of the procedure; J44.9 Chronic obstructive pulmonary disease, unspecified; I25.10 Atherosclerotic heart disease of native coronary artery without angina pectoris; K72.90 Hepatic failure, unspecified without coma; E11.22 Type 2 diabetes mellitus with diabetic chronic kidney disease; I12.9 Hypertensive chronic kidney disease with stage 1 through stage 4 chronic kidney disease, or unspecified chronic kidney disease; N18.9 Chronic kidney disease, unspecified; I27.2 Other secondary pulmonary hypertension; I07.1 Rheumatic tricuspid insufficiency; I73.9 Peripheral vascular disease, unspecified; W19.XXXA Unspecified fall, initial encounter; Z78.1 Physical restraint status; Z95.5 Presence of coronary angioplasty implant and graft; Z95.1 Presence of aortocoronary bypass graft; Z72.0 Tobacco use